=== PATIENT | male | born 2000 | race Caucasian/White ===

== ENCOUNTER 2020-11-26 19:09 | Inpatient (IN) ==
[2020-11-26] MEDS ORDERED: KETOROLAC TROMETHAMINE 15 MG/ML VIAL IV STA (19:36)
[2020-11-26] MEDS ORDERED: SODIUM CHLORIDE 0.9% 1000ML 1,000 ML IV ONE (19:36)
[2020-11-26] MEDS ORDERED: MoRPHine SULFATE 4 MG/ML 1 ML CARP\\VIAL IV STA (19:36)
[2020-11-26] MEDS ORDERED: ONDANSETRON INJ 2 MG/ML 2 ML VIAL IV STA (19:36)
--- NOTE | 2020-11-26 19:40 | Emergency Department Note ---
Impression & Plan Renal colic, Vomiting, Failure of outpatient treatment ED Provider Note NAME: JAHAIRA SALAZAR AGE: 20 SEX: M : 2000 ARRIVES VIA: Walk-In INFORMANT: [Patient] ED PROVIDER(S): [Nikko Catherine MD] CHIEF COMPLAINT: Flank pain HISTORY OF PRESENT ILLNESS: The patient is a 20-year-old male who has a 3 mm right ureteral stone. He was here on the and diagnosed with the stone by CT imaging. He was discharged with pain medication and some nausea medication. The patient returned the following day and a KUB showed the stone had progressed to the distal portion of the ureter. He presents back today with continued pain. He has not passed the stone. He is out of his pain and nausea medication. He also states he has not had a bowel movement in around 2 days. Patient has been vomiting this afternoon. The pain is an 8/10. The pain is right-sided and radiates to the right flank. No testicle pain. No fever, no cough or congestion. No blood in the urine or urinary burning. REVIEW OF SYSTEMS: See HPI for pertinent positives and negatives. A total of ten systems were reviewed and were otherwise negative. PMHx/PSHx: See Below SOCIAL HISTORY: See Below. PHYSICAL EXAM: GENERAL: Patient is in no acute distress. HEENT: No acute trauma, normocephalic atraumatic, mucous membranes moist, no nasal congestion, no scleral icterus. NECK: No stridor, no adenopathy, no meningismus, trachea is midline. LUNGS: Clear to auscultation bilaterally, no wheeze, no rhonchi, breath sounds equal. HEART: Without murmurs gallops or rubs, regular rate and rhythm. ABDOMEN: Soft, moderately tender along the entire right side of the abdomen, bowel sounds positive, no hernias, no peritonitis. EXTREMITIES: No cyanosis or edema, full range of motion of all the joints without pain or difficulty, no signs for acute trauma. NEUROLOGIC: Oriented x 3, no acute motor or sensory deficits, no focal weakness. SKIN: No rash, no jaundice, no diaphoresis. Back: Right flank discomfort to percussion. DIFFERENTIAL DIAGNOSIS: Renal colic, UTI, appendicitis, diverticulitis, mesenteric ischemia, aortic pathology, constipation, infections, inflammatory bowel disease, PUD, biliary pathology, as well as other pathologies. EMERGENCY DEPARTMENT COURSE/PROCEDURES: MEDICAL DECISION MAKING: There is no leukocytosis or concerning anemia. There is a normal platelet count. Potassium slightly low but there is no need for emergent correction. There is no kidney failure. Urinalysis does not show infection. Covid and influenza testing were negative. KUB demonstrates a potential distal right ur eteral stone. On exam, the patient did have right flank discomfort and some right lower abdominal discomfort. The patient received IV saline, 1 L. He was given IV Zofran. He eventually required a dose of IV Phenergan for persistent nausea and vomiting. He was given oral Flomax to help with the stone passage. He received IV morphine and IV Toradol. This is the patient's third visit for this right ureteral stone. I do think a hospital stay is warranted. He has failed outpatient treatment. I spoke to the patient, I talked with the keycase assembler. The on-call hospitalist was consulted. Past Med/Surg History Medical History Kidney stone Surgical History No significant past surgical history Social History Smoking Status: Never smoker Preferred Language: Filipino marital status: Single current occupational status: student Feels Safe at Home: Yes Allergies Allergies Allergy/AdvReac Type Severity Reaction Status Date / Time No Known Allergies Allergy Unverified 11/24/20 09:47 Home Meds Previous Rx's Medication Instructions Recorded naproxen 250 mg PO Q8H #21 tab 11/23/20 ondansetron 4 mg PO Q6H PRN #10 tab 11/23/20 oxycodone 5 mg PO Q6H PRN #12 tab 11/23/20 Results & Data (ED) Vital Signs Vital Signs - 24 hr 11/26/20 19:14 11/26/20 20:56 Temperature 36.7 C Temperature Source Temporal Artery Scan Pulse Rate 73 Pulse Rate [Finger] 87 Pulse Rhythm Regular Pulse Strength Normal Respiratory Rate 16 18 Respiratory Effort / Characteristics Non-Labored Respiratory Depth Normal Respiratory Pattern Regular Blood Pressure 134/81 Blood Pressure [Right Arm] 124/78 Blood Pressure Mean 98 Blood Pressure Mean [Right Arm] 93 Blood Pressure Position Sitting Blood Pressure Position [Right Arm] Lying Pulse Oximetry 94 100 Oxygen Delivery Method Room Air Sepsis Recent Fever Within 48 Hours No Sepsis New/Unexplained Change in Mental Status N/A Sepsis Action Taken by Nursing No Action Required Home Medications Current Medication List: was personally reviewed by me Laboratory Data Attestation: I reviewed the patient's lab results. Result diagrams: 11/26/20 19:55 11/26/20 19:55 Lab Results 11/26/20 11/26/20 11/26/20 Range/Units 19:55 19:55 20:56 WBC 9.84 (4.8-10.8) K/uL RBC 4.62 L (4.7-6.1) M/uL Hgb 13.6 L (14.0-18.0) g/dL Hct 39.1 L (42-52) % MCV 84.6 (80-100) fL MCH 29.4 (25-34) pg MCHC 34.8 (32-36) g/dL RDW Std Deviation 36.2 L (36.4-46.3) fL RDW Coeff of Raul 11.8 (11.5-14.5) % Plt Count 231 (130-400) K/uL MPV 8.6 (7.4-10.4) fL Sodium 139 (136-145) mmol/L Potassium 3.2 L (3.5-5.1) mmol/L Chloride 105 (98-107) mmol/L Carbon Dioxide 30 (21-32) mmol/L Anion Gap 4.0 (3-11) BUN 10 (7-18) mg/dl Creatinine 1.34 (0.6-1.4) mg/dl Est Cr Clr Drug Dosing 85.2 ml/min Est GFR ( Amer) 87.2 Est GFR (Non-Af Amer) 75.2 BUN/Creatinine Ratio 7.2 L (10-20) Glucose 88 (70-99) mg/dl Calcium 8.6 (8.5-10.1) mg/dl Urine Color Yellow Urine Appearance Clear (Clear) Urine pH 7.0 (4.5-7.5) Ur Specific Overton 1.006 (1.000-1.030) Urine Protein Negative (Negative) Urine Glucose (UA) Negative (Negative) Urine Ketones Trace H (Negative) Urine Blood Trace H (Negative) Urine Nitrite Negative (Negative) Urine Bilirubin Negative (Negative) Urine Urobilinogen Negative (Negative) Ur Leukocyte Esterase Negative (Negative) Urine WBC (Auto) 0 (0-5) /hpf Urine RBC (Auto) 0-4 (0-4) /hpf U Hyaline Cast (Auto) 0 (0-5) /lpf U Epithel Cells (Auto) 0-5 (0-5) /lpf Urine Bacteria (Auto) Negative (Negative) COVID-19 Eval Order SARS-CoV-2 (PCR) (Negative) Influenza Type A (PCR) (Neg) Influenza Type B (PCR) (Neg) RSV (RT-PCR) (Neg) 11/26/20 11/26/20 Range/Units 22:05 22:05 WBC (4.8-10.8) K/uL RBC (4.7-6.1) M/uL Hgb (14.0-18.0) g/dL Hct (42-52) % MCV (80-100) fL MCH (25-34) pg MCHC (32-36) g/dL RDW Std Deviation (36.4-46.3) fL RDW Coeff of Raul (11.5-14.5) % Plt Count (130-400) K/uL MPV (7.4-10.4) fL Sodium (136-145) mmol/L Potassium (3.5-5.1) mmol/L Chloride (98-107) mmol/L Carbon Dioxide (21-32) mmol/L Anion Gap (3-11) BUN (7-18) mg/dl Creatinine (0.6-1.4) mg/dl Est Cr Clr Drug Dosing ml/min Est GFR ( Amer) Est GFR (Non-Af Amer) BUN/Creatinine Ratio (10-20) Glucose (70-99) mg/dl Calcium (8.5-10.1) mg/dl Urine Color Urine Appearance (Clear) Urine pH (4.5-7.5) Ur Specific [place] (1.000-1.030) Urine Protein (Negative) Urine Glucose (UA) (Negative) Urine Ketones (Negative) Urine Blood (Negative) Urine Nitrite (Negative) Urine Bilirubin (Negative) Urine Urobilinogen (Negative) Ur Leukocyte Esterase (Negative) Urine WBC (Auto) (0-5) /hpf Urine RBC (Auto) (0-4) /hpf U Hyaline Cast (Auto) (0-5) /lpf U Epithel Cells (Auto) (0-5) /lpf Urine Bacteria (Auto) (Negative) COVID-19 Eval Order [facility]FluRsv at [facility] SARS-CoV-2 (PCR) NEGATIVE (Negative) Influenza Type A (PCR) Negative (Neg) Influenza Type B (PCR) Negative (Neg) RSV (RT-PCR) Negative (Neg) Administered Medications Potassium Chloride (K Lavon / Wtr) 10 meq in 100 mls @ 100 mls/hr IV Q1H STA Stop: 11/26/20 23:44 Last Admin: 11/26/20 23:03 Dose: 100 mls/hr Documented by: [id number] Discontinued Medications Sodium Chloride (Nss 1000ml) 1,000 mls @ 999 mls/hr IV .Q1H1M ONE Stop: 11/26/20 20:36 Last Infusion: 11/26/20 21:11 Dose: 0 mls/hr Documented by: [id number] Admin: 11/26/20 20:10 Dose: 999 mls/hr Documented by: [id number] Promethazine HCl (Phenergan) 12.5 mg in 50.5 mls @ 202 mls/hr IV NOW STA Stop: 11/26/20 21:34 Last Infusion: 11/26/20 21:41 Dose: 0 mls/hr Documented by: [id number] Admin: 11/26/20 21:26 Dose: 202 mls/hr Documented by: [id number] Sodium Chloride (Nss 1000ml) 1,000 mls @ 125 mls/hr IV .Q8H JOIE Stop: 12/26/20 22:31 Last Admin: 11/26/20 22:45 Dose: Not Given Documented by: [id number] Ketorolac Tromethamine (Ketorolac Tromethamine 15 Mg/Ml Vial) 15 mg IV NOW STA Stop: 11/26/20 19:37 Last Admin: 11/26/20 20:10 Dose: 15 mg Documented by: [id number] Morphine Sulfate (Morphine Sulfate 4 Mg/Ml 1 Ml Carp\Vial) 4 mg IV NOW STA Stop: 11/26/20 19:37 Last Admin: 11/26/20 20:10 Dose: 4 mg Documented by: [id number] Ondansetron HCl (Ondansetron Inj 2 Mg/Ml 2 Ml Vial) 4 mg IV NOW STA Stop: 11/26/20 19:37 Last Admin: 11/26/20 20:10 Dose: 4 mg Documented by: [id number] Potassium Chloride (Potassium Chloride Crtab 20 Meq Tabcr) 20 meq PO NOW STA Stop: 11/26/20 22:46 Last Admin: 11/26/20 23:03 Dose: 20 meq Documented by: [id number] Tamsulosin HCl (Tamsulosin Hcl 0.4 Mg Cap) 0.4 mg PO NOW ONE Stop: 11/26/20 19:37 Last Admin: 11/26/20 22:44 Dose: Not Given Documented by: [id number] Imaging Data Radiologist's Impression: KUB X-Ray 11/26/20 19:36 XR KUB/Abdomen 1 view CLINICAL HISTORY: renal colic right COMPARISON STUDY: 11/24/2020 FINDINGS: The renal shadows are partially obscured by bowel gas and fecal material. Tiny bilateral renal calculi are suspected. There is no pathologic bowel dilatation. There is a nonspecific 2 mm right pelvic basin calcification. IMPRESSION: 1. Nonobstructive bowel gas pattern 2. Bilateral nephrolithiasis 3. 2 mm right pelvic basin calcification, possibly representing a distal right ureteral calculus given the clinical history of right renal colic ACT 112: Negative or not required by law. Electronically signed by: Ayo Good M.D. 11/26/2020 7:58 PM Discharge Plan Visit Data Chief Complaint: Kidney Stone Stated Complaint: KIDNEY STONE ED Provider: Nikko Catherine Discharge Problem: Renal colic, Vomiting, Failure of outpatient treatment Forms Stand Alone Forms: [facility] Prescriptions Prescriptions: No Action ondansetron 4 mg tablet,disintegrating 4 mg PO Q6H PRN (Reason: nausea and vomiting) Qty: 10 RF: 0 oxycodone 5 mg tablet 5 mg PO Q6H PRN (Reason: pain) Qty: 12 RF: 0 naproxen 250 mg tablet 250 mg PO Q8H Qty: 21 RF: 0 Referrals Referrals: [facility] [Primary Care Provider] - Discharge Problem: Vomiting Qualifiers: Vomiting type: unspecified Vomiting Intractability: non-intractable Nausea presence: with nausea Qualified Code(s): R11.2 - Nausea with vomiting, unspecified
--- NOTE | 2020-11-26 20:00 | XRay Report ---
XR KUB/Abdomen 1 view CLINICAL HISTORY: renal colic right COMPARISON STUDY: 11/24/2020 FINDINGS: The renal shadows are partially obscured by bowel gas and fecal material. Tiny bilateral re nal calculi are suspected. There is no pathologic bowel dilatation. There is a nonspecific 2 mm right pelvic basin calcification. IMPRESSION: 1. Nonobstructive bowel gas pattern 2. Bilateral nephrolithiasis 3. 2 mm right pelvic basin calcification, possibly representing a distal right ureteral calculus give n the clinical history of right renal colic ACT 112: Negative or not required by law. Electronically signed by: Ayo Good M.D. 11/26/2020 7:58 PM
[2020-11-26] MEDS: TAMSULOSIN HCL 0.4 MG CAP PO ONE ×2 (20:10→22:44)
[2020-11-26 20:22] LABS: Hematocrit (blood only) 39.1 % (42-52); Hemoglobin 13.6 g/dL (14.0-18.0); Mean Corpuscular Hemoglobin 29.4 pg (25-34); Mean Corpuscular Hgb Conc 34.8 g/dL (32-36); Mean Corpuscular Volume 84.6 fL (80-100); Mean Platelet Volume 8.6 fL (7.4-10.4); Platelet Count 231 K/uL (130-400); RDW Coefficient of Variation 11.8 % (11.5-14.5); RDW Standard Deviation 36.2 fL (36.4-46.3); Red Blood Count 4.62 M/uL (4.7-6.1); White Blood Count 9.84 K/uL (4.8-10.8)
[2020-11-26 20:39] LABS: BUN Creatinine Ratio 7.2 (10-20); Calcium 8.6 mg/dl (8.5-10.1); Creatinine Clr Calc Pharmacy 85.2 ml/min; Est GFR (African American) 87.2; Est GFR (Non-African American) 75.2; Potassium 3.2 mmol/L (3.5-5.1)
[2020-11-26 21:08] LABS: Appearance Urine Clear (Clear); Bacteria Urine Automated Negative (Negative); Bilirubin Urine Negative (Negative); Blood Urine Trace (Negative); Cast Urine Automated 0 /lpf (0-5); Color Urine Yellow; Epithelial Cell Urine Auto 0-5 /lpf (0-5); Glucose Urine UA Negative (Negative); Ketones Urine Trace (Negative); Leukocyte Esterase Urine Negative (Negative); Nitrite Urine Negative (Negative); Protein Urine Negative (Negative); RBC Urine Automated 0-4 /hpf (0-4); Specific Gravity Urine 1.006 (1.000-1.030); Urobilinogen Urine Negative (Negative); WBC Urine Automated 0 /hpf (0-5)
[2020-11-26] MEDS ORDERED: PROMETHAZINE 12.5 MG/50.5 ML BAG IV STA (21:20)
--- NOTE | 2020-11-26 22:11 | Urology Consultation ---
Date of Consultation November 26, 2020 Assessment & Plan (1) Kidney stone: As this is now the patient's third visit secondary to his nephrolithiasis and due to his intractable nausea vomiting he is being admitted to the hospital by the hospital service. It is recommended we proceed in the following manner: Provide analgesics Provide antiemetics Provide IV fluids for hydration Provide Flomax for kidney stone expulsive therapy Strain all urine and save any kidney stones that are collected for proper analysis The patient n.p.o. after midnight and he will be assessed in the morning to determine if cystoscopy will be required. Further recommendations were made based on patient's clinical course as it unfolds History of Present Illness Reason for Consultation: Nephrolithiasis History of Present Illness This is a 20-year-old male who is being admitted to the hospital secondary to renal colic secondary to nephrolithiasis. Today is now the patient's third vi sit is 11/23/2020. Patient notes that his pain first began the evening of 11/21/2020. He described the pain as a right flank pain. He felt as though the pain may improve but over the ensuing 24 hours it did not. He therefore presented to [facility] emergency department on 11/23/2020. During that visit patient was noted to have a 3 mm kidney stone at the ureteral pelvic junction causing moderate hydronephrosis. He was able to be discharged home with pain measures in place. Patient's pain did not improve and he returned to the emergency department on 11/24/2020. During this visit the patient had a KUB that showed that the stone had migrated distally to the ureterovesical junction. He was again able to be discharged home with pain control measures in place. Patient returned to the emergency department this evening due to intractable pain as well as nausea vomiting. Today he notes the pain is in his right flank with some radiation to the right anterior abdomen and right groin. He notes intractable nausea vomiting. He denies any fevers but does have occasional shakes and chills. He denies any dysuria. Since his problems began he has noted a small amount of hematuria. He notes that the pain is improved with medicines that are ministered in the emergency department and seems to be worse when he lies down. He notes that this is the first time he has ever had an issue with kidney stones. In the emergency department patient did have labs and imaging independently reviewed. He did have a CT scan on 11/23/2020 as well as KUB on 11/24/2020 which are noted above. At today's visit he did have a KUB that again showed a calcification in the right pelvic region felt to represent the above-noted kidney stone. There is no over the mention the patient did have a CBC today shows white blood cell count platelet count were noted to be normal. His hemoglobin and hematocrit were noted to be 13.6 and 39.1 respectively. A chemistry profile revealed his potassium was 3.2. His sodium, BUN, and creatinine were all noted to be within normal range. Urinalysis today did show trace blood and was not indicative of infection. A Covid test has been ordered and is pending. At the time of my interview with the patient he was in no distress but he was having intermittent bouts of nausea vomiting. Allergies Allergy/AdvReac Type Severity Reaction Status Date / Time No Known Allergies Allergy Unverified 11/24/20 09:47 Home Medications Medication Instructions Recorded Confirmed Type naproxen 250 mg PO Q8H #21 tab 11/23/20 11/26/20 Rx ondansetron 4 mg PO Q6H PRN #10 tab 11/23/20 11/26/20 Rx oxycodone 5 mg PO Q6H PRN #12 tab 11/23/20 11/26/20 Rx Patient History Medical History Kidney stone Surgical History No significant past surgical history Social History Smoking Status: Never smoker Preferred Language: Faroese marital status: Single current occupational status: student Feels Safe at Home: Yes Review of Systems Constitutional: no fever Eyes: no diplopia Ear, Nose, Mouth, Throat: no ear pain Respiratory: no cough and no dyspnea Cardiovascular: no chest pain Gastrointestinal: + nausea and + vomiting; no abdominal pain Genitourinary: + hematuria and + flank pain (Right sided); no dysuria Musculoskeletal: + back pain (Right flank) Integumentary: no rash Neurologic: no generalized weakness Physical Exam Constitutional: well developed and well nourished; no acute distress Eyes: no conjunctival abnormality ENMT: Ears: no hearing impairment Neck: trachea midline Respiratory: normal respiratory effort, lungs clear to auscultation Cardiovascular: Rate/Rhythm: regular rate and regular rhythm Gastrointestinal (Abdomen): Abdomen is soft and nondistended. Bowel sounds are present. There is no rebound tenderness or guarding. There is no pain with palpation. Musculoskeletal: No calf tenderness Skin: no rashes, warm and dry Neurologic: moves all extremities Psychiatric: A+Ox3, euthymic affect Genitourinary: + CVA tenderness (Right sided) Results & Data ([facility]) Vital Signs (Past 12 Hours) Vital Signs Temp Pulse Pulse Resp BP BP Pulse Ox 11/26/20 20:56 87 18 124/78 100 11/26/20 19:14 36.7 C 73 16 134/81 94 PG Care Time/CCT Total # of Minutes Spent Total Time Spent with Patient: Total time spent is greater than 50% in coordination of care (as documented) at patient's floor/unit and/or counseling patient: Coding Level of Care Code 86176 Inpt Consult Level 5 Diagnoses Kidney stone N20.0
[2020-11-26] MEDS ORDERED: SODIUM CHLORIDE 0.9% 1000ML 1,000 ML IV SCH (22:32)
[2020-11-26] MEDS ORDERED: ONDANSETRON HOME PACK 4MG OD TAB PO PRN (22:32)
[2020-11-26] MEDS ORDERED: ACETAMINOPHEN 325 MG TAB PO PRN (22:35)
--- NOTE | 2020-11-26 22:39 | History & Physical Report ---
Date of Service November 26, 2020 Assessment & Plan (1) Right distal ureteral calculus: 20 yo M no significant PMHx admitted for intractable nausea and vomiting with right nephrolithiasis/hydronephrosis. Right nephrolithiasis: Initially presented on 11/23 with complaints of flank pain, nausea, vomiting. Found on CTAP to have 3 mm right ureteropelvic junction calculus with moderate right hydronephrosis. Creatinine this admission 1.34, no pre-illness baseline, however patient's creatinine 1.17 on 11/23. Likely post-obstructive given hydronephrosis. Was tolerating pain and nausea well with prescribed Zofran and oxycodone, however pain and nausea returned today when patient ran out of medication. Urology consulted and appreciate recommendations. No findings on UA suggestive of infected stone. Start Flomax, NPO (except meds) with NSS with KCl 20meq at 125cc/hr. Oxycodone and Tylenol for pain, Zofran for nausea. Strain all urine. Hypokalemia: On admission with potassium 3.2. This is in the setting of frequent nausea and vomiting, poor PO intake for seeral days due to pain. Repleted with KCl 20meq PO, 20meq IV. Repeat BMP in AM. Code Status: FULL CODE FEN: NPO except meds; NSS with KCl 20 meq at 125cc/hr DVT ppx: ad mimi on demand, low risk Dispo: Med/Surg (2) Nausea: (3) Elevated serum creatinine: History of Present Illness Chief Complaint: intractable pain, nausea, vomiting Primary Care Provider: [facility] 20 yo M no PMHx presented to ER for continued back and abdominal pain, nausea, and vomiting, after running out of pain and nausea medication for his right kidney stone. On 11/23 he presented to the ER for the same symptoms and was found on CTAP to have 3mm right nephrolithiasis with moderate hydronephrosis. He was discharged with prn Zofran and oxycodone and advised to come back if no better. He was doing well in outpatient setting with prn medications, however he ran out of them yesterday and since then has had recurrence of his pain, nausea, vomiting. He has been unable to eat today due to nausea and vomiting. In the ER today his UA did not appear infected. No leukocytosis, KUB shows persistent small right stone. Creatinine 1.3, and potassium 3.2. Hospitalist service consulted for admission with Urology consult. Allergies Allergy/AdvReac Type Severity Reaction Status Date / Time No Known Allergies Allergy Unverified 11/24/20 09:47 Home Medications Medication Instructions Recorded Confirmed Type naproxen 250 mg PO Q8H #21 tab 11/23/20 11/26/20 Rx ondansetron 4 mg PO Q6H PRN #10 tab 11/23/20 11/26/20 Rx oxycodone 5 mg PO Q6H PRN #12 tab 11/23/20 11/26/20 Rx Past Med/Surg History Medical History Kidney stone Surgical History No significant past surgical history Social History Smoking Status: Never smoker Hx Alcohol Use: Yes Hx Substance Use: No Preferred Language: Bulgarian Communication Ability: Effective Head Usher Required: No Beliefs That Will Affect Care: None marital status: Single Current Living Situation: Other Current Living Situation Comment: Apartment with roommates current occupational status: student Other Information That Helps Us Care for You: No Feels Safe at Home: Yes Safety Concerns: Feels Safe At This Time Assistive Devices: None Review of Systems Review of Systems: All systems reviewed & are unremarkable except as noted in HPI & below Constitutional: + malaise; no fever and no chills Respiratory: no cough and no dyspnea Cardiovascular: no chest pain, no palpitations and no edema Gastrointestinal: + abdominal pain (RLQ) and + nausea; no constipation and no diarrhea/loose stools Physical Exam Constitutional: WD/WN, vitals as above Eyes: PERRL, conjunctivae normal, anicteric sclerae ENMT: external ear and nose normal, oropharynx normal Neck: normal visual inspection Respiratory: normal respiratory effort, lungs clear to auscultation Cardiovascular: RRR, no murmur, no edema Gastrointestinal (Abdomen): Inspection/Auscultation: normal bowel sounds; abdomen not distended Percussion/Palpation: + abdomen tender (RLQ, mild) and abdomen soft; no guarding Musculoskeletal: no cyanosis or clubbing, extremities motor strength 5/5 Skin: no rashes, warm and dry Neurologic: AAOx3, normal speech. Bilateral UE, LE, and face without sensory or motor deficits. No tremor. Psychiatric: A+Ox3, euthymic affect Results & Data Results & Data ([facility]) Vital Signs (Past 12 Hours) Vital Signs Temp Pulse Pulse Resp BP BP Pulse Ox 11/26/20 20:56 87 18 124/78 100 11/26/20 19:14 36.7 C 73 16 134/81 94 Supervising Physician Co-Signing Physician Notes Attending addendum: I have physically seen this patient, have supervised the medical residents activities, and agree with the H&P unless as otherwise noted. Assessment and Plan: 3 mm right distal ureteral calculus/mod right hydronephrosis- NPO IV fluids, NSS + KCl 20 mEq at 125 mils per hour Tamsulosin 0.4 mg daily Acetaminophen 650 mg p.o. every 6 hours as needed mild pain or fever Oxycodone 5 mg p.o. every 6 hours as needed moderate pain Oxycodone 10 mg p.o. every 6 hours as needed severe pain Zofran 4 mg IV every 6 hours as needed Consult urology Hypokalemia- Potassium 3.2 upon admission Replace both orally and IV Remaining orders and notations as noted Resident Activity Tracking Resident Involvement: Resident Care Provided Care Provided: Adult [facility] Medicine
[2020-11-26] MEDS ORDERED: POTASSIUM CHLORIDE CRTAB 20 MEQ TABCR PO STA (22:45)
[2020-11-26] MEDS ORDERED: POTASSIUM CHLORIDE / WTR 10 MEQ/100 ML PLCT IV STA (22:45)
[2020-11-26 23:26] LABS: Influenza A virus by PCR Negative (Neg); Influenza B virus by PCR Negative (Neg); RSV by PCR Negative (Neg); SARS CoV2 RNA(COVID-19) InHosp NEGATIVE (Negative)
[2020-11-26] MEDS: NSS + 20MEQ KCL 20 MEQ/1,000 ML BAG IV SCH (23:54)
[2020-11-27] MEDS: oxyCODONE HCL IR 5 MG TAB (IMMEDIATE RELEASE) PO PRN ×4 (01:42→20:09)
[2020-11-27] MEDS: ONDANSETRON INJ 2 MG/ML 2 ML VIAL IV PRN ×3 (06:44→20:10)
[2020-11-27 06:47] LABS: Hemoglobin 14.1 g/dL (14.0-18.0); Mean Corpuscular Hemoglobin 29.4 pg (25-34); Mean Corpuscular Hgb Conc 35.3 g/dL (32-36); Mean Corpuscular Volume 83.3 fL (80-100); Mean Platelet Volume 8.5 fL (7.4-10.4); Platelet Count 247 K/uL (130-400); RDW Coefficient of Variation 11.6 % (11.5-14.5); RDW Standard Deviation 35.4 fL (36.4-46.3); White Blood Count 10.45 K/uL (4.8-10.8)
[2020-11-27] MEDS: NSS + 20MEQ KCL 20 MEQ/1,000 ML BAG IV SCH ×3 (07:14→20:10)
[2020-11-27 07:16] LABS: Calcium 9.4 mg/dl (8.5-10.1); Creatinine Clr Calc Pharmacy 79.5 ml/min; Est GFR (African American) 81.3; Est GFR (Non-African American) 70.1; Potassium 3.9 mmol/L (3.5-5.1)
--- NOTE | 2020-11-27 07:23 | Urology Progress Note ---
Date of Service November 27, 2020 Assessment & Plan (1) Right distal ureteral calculus: (2) Nausea: (3) Renal colic: 20 year-old male patient admitted with intractable right flank/groin pain with associated nausea/vomiting secondary to obstructing 3 mm right distal ureteral calculus. -Patient remains afebrile. -Labs reviewed - white count normal, creatinine elevated above baseline at 1.42. -Urinalysis on admission not suspicious for infection. -Nausea has improved however he does continue to have intermittent pain that varies in severity. -Discussed treatment options with patient including inpatient surgical intervention versus ESWL versus trial of passage. -Patient prefers to not undergo surgical intervention at this time. -He elects to continue with trial of passage while inpatient. -Okay to have diet today, recommend NPO after midnight. -Continue to strain urine. -Continue with hydration and pain control. -Will continue to follow while inpatient. Please consult our service urgently if patient develops fever >101F, intractable pain or nausea, as this will necessitate urgent surgical intervention. Admission and Anticipated Discharge Date Admission Date: November 26, 2020 Subjective Patient examined at bedside. He is alert, awake, non-toxic in appearance. Reports the nausea has improved, has not vomited since late last evening. Continues to have right groin/right flank pain, varying in severity. Denies dysuria. Noted small amount of hematuria when symptoms originally started. Denies significant frequency/urgency. Denies fevers or chills. Had difficulty sleeping last evening. No known passage of stone since admission. Has been NPO since midnight. Chart review: Afebrile. Wbc 10.45 Hgb 14.1 Creatinine 1.42 (previously 1.34) Urinalysis on admission not indicative of infection. Denies additional urologic concerns today. Review of Systems Constitutional: as per Subjective / HPI; no fever and no chills Gastrointestinal: as per Subjective / HPI Genitourinary: + as per Subjective / HPI Physical Exam Constitutional: well developed and well nourished; no acute distress and not ill appearing Respiratory: normal respiratory effort and able to speak in complete sentences; no respiratory distress and no audible wheezes Gastrointestinal (Abdomen): Inspection/Auscultation: abdomen normal to inspection; abdomen not distended Percussion/Palpation: + abdomen tender (Right lower quadrant) and abdomen soft; no guarding Psychiatric: Orientation: alert, oriented x 3 and cooperative Affect: euthymic affect Genitourinary: no CVA tenderness Results & Data ([facility]) Vital Signs (Past 12 Hours) Vital Signs Temp Pulse Pulse Resp BP Pulse Ox 11/27/20 01:00 36.5 C 77 14 128/77 97 11/26/20 23:52 79 20 117/57 L 95 11/26/20 20:56 87 18 124/78 100 PG Care Time/CCT Total # of Minutes Spent Total Time Spent with Patient: Total time spent is greater than 50% in coordination of care (as documented) at patient's floor/unit and/or counseling patient: Coding Level of Care Code 43560 Subseq Hosp Care Lvl 2 Diagnoses Right distal ureteral calculus N20.1 Nausea R11.0 Renal colic N23
--- NOTE | 2020-11-27 08:05 | Hospitalist Progress Note ---
Date of Service November 27, 2020 Assessment & Plan (1) Kidney stone on right side: 20 yo M no significant PMHx admitted for intractable nausea and vomiting with right nephrolithiasis/hydronephrosis. Right nephrolithiasis: -Initially presented on 11/23 with complaints of flank pain, nausea, vomiting. -Found on CTAP to have 3 mm right ureteropelvic junction calculus with moderate right hydronephrosis. -Creatinine this admission 1.34, no pre-illness baseline, however patient's creatinine 1.17 on 11/23. Likely post-obstructive given hydronephrosis. -Was tolerating pain and nausea well with prescribed Zofran and oxycodone, however pain and nausea returned when patient ran out of medication. -Urology -Patient prefers to not undergo surgical intervention at this time. -He elects to continue with trial of passage while inpatient. -Okay to have diet today, recommend NPO after midnight. -No findings on UA suggestive of infected stone. -Continue Flomax and NSS with KCl 20meq at 125cc/hr. -Oxycodone and Tylenol for pain, Zofran for nausea. -Strain all urine. Hypokalemia: -On admission with potassium 3.2 in the setting of frequent nausea and vomiting, poor PO intake for several days due to pain. -Repleted with KCl 20meq PO, 20meq IV. -Repeat BMP with normal potassium -Continue to monitor Code Status: FULL CODE FEN: Regular; NSS with KCl 20 meq at 125cc/hr DVT ppx: ad mimi on demand, low risk Dispo: Med/Surg (2) Nausea: (3) Right distal ureteral calculus: (4) Vomiting: (5) Failure of outpatient treatment: (6) Elevated serum creatinine: Admission and Anticipated Discharge Date Admission Date: November 26, 2020 Supervising Physician Co-Signing Physician Notes I personally examined the patient and verified all foster points of history and exam, discussed case, and agree with decision making with Dr Kent. Feeling better whenever I see him, Dr. eKnt revisits later, patient does not feel like he would be able to go home yet. Pain has not really shifted in location, has not clearly passed the stone. Vitals noted, in general awake and alert pleasant no distress. HEENT norm ocephalic atraumatic mucous membranes moist. Breathing unlabored no accessory muscle use good effort. Skin shows no rashes no pallor or icterus. Neuro shows no focal deficits. Ureterolithiasis with pain on managed as an outpatient, as well as dehydration with subsequent acute kidney injurypain control, IV fluids, expectant management. If stone fails to progress, then consider urology intervention. Otherwise as above. Subjective Patient laying in bed comfortably. Mentions that he recently had pain medication as he was having a moderate level of pain. Since then has been well controlled. Denies nausea or vomiting at this point. As discussed with urology, he prefers to attempt to pass the stone without surgical intervention overnight. Willing to discuss undergoing surgical intervention if he does not pass it tonight. Review of Systems Review of Systems: All systems reviewed & are unremarkable except as noted in Subjective Physical Exam Constitutional: WD/WN, vitals as above Eyes: PERRL, conjunctivae normal, anicteric sclerae ENMT: external ear and nose normal, oropharynx normal Neck: normal visual inspection Respiratory: normal respiratory effort, lungs clear to auscultation Cardiovascular: RRR, no murmur, no edema Gastrointestinal (Abdomen): Inspection/Auscultation: normal bowel sounds; abdomen not distended Percussion/Palpation: + abdomen tender (RLQ, mild) and abdomen soft; no guarding Musculoskeletal: no cyanosis or clubbing, extremities motor strength 5/5 Skin: no rashes, warm and dry Neurologic: AAOx3, normal speech. Bilateral UE, LE, and face without sensory or motor deficits. No tremor. Psychiatric: A+Ox3, euthymic affect Results & Data Results & Data ([facility]) Vital Signs (Past 12 Hours) Vital Signs Temp Pulse Pulse Resp BP Pulse Ox 11/27/20 07:36 36.9 C 83 20 127/84 98 11/27/20 01:00 36.5 C 77 14 128/77 97 11/26/20 23:52 79 20 117/57 L 95 11/26/20 20:56 87 18 124/78 100 Resident Activity Tracking Resident Involvement: Resident Care Provided Care Provided: Adult Hospital Medicine (1) Vomiting Nausea presence: with nausea Vomiting Intractability: non-intractable Vomiting type: unspecified Qualified Code(s): R11.2 - Nausea with vomiting, unspecified
[2020-11-27] MEDS: TAMSULOSIN HCL 0.4 MG CAP PO SCH (09:20)
[2020-11-27] MEDS ORDERED: oxyCODONE HCL SOLN 5 MG/5 ML UDC PO STA (16:45)
--- NOTE | 2020-11-27 17:00 | Billing Data ---
Date of Service November 27, 2020 Coding Level of Care Code 69810 Subseq Hosp Care Lvl 2
--- NOTE | 2020-11-27 21:53 | Billing Data ---
Date of Service November 27, 2020 Coding Level of Care Code 20281 Initial Inpt Care Lvl 2
[2020-11-28] MEDS: NSS + 20MEQ KCL 20 MEQ/1,000 ML BAG IV SCH ×2 (04:31→11:38)
[2020-11-28] MEDS: oxyCODONE HCL IR 5 MG TAB (IMMEDIATE RELEASE) PO PRN ×2 (04:33→10:10)
[2020-11-28 07:06] LABS: BUN Creatinine Ratio 9.1 (10-20); Calcium 8.4 mg/dl (8.5-10.1); Creatinine Clr Calc Pharmacy 106.5 ml/min; Est GFR (African American) 115.7; Est GFR (Non-African American) 99.8
[2020-11-28] MEDS: TAMSULOSIN HCL 0.4 MG CAP PO SCH (07:31)
--- NOTE | 2020-11-28 08:42 | XRay Report ---
KUB HISTORY: Follow up study in a patient with distal ureteral calculus right distal ureteral calculus COMPARISON: KUB 11/26/2020, CT abdomen and pelvis 11/23/2020 FINDINGS: Renal shadows are partially obscured by bowel gas. Bilateral nephrolithiasis redemonstrate d with calculi measuring up to approximately 3 mm. Ill-defined 2 mm radio density of the right hemipe lvis redemonstrated. No pneumoperitoneum or pneumatosis. No fracture. IMPRESSION: 1. Limited exam secondary to obscuring bowel gas. 2. 2 mm radiodensity of the right hemipelvis may correlate with the previously noted calculus of the ureterovesicular junction. 3. Nonobstructing bilateral nephrolithiasis. ACT 112: Negative or not required by law. The above report was generated using voice recognition software. It may contain grammatical, syntax o r spelling errors. Electronically signed by: Yonas Domingo M.D. 11/28/2020 8:41 AM
[2020-11-28] MEDS: ONDANSETRON INJ 2 MG/ML 2 ML VIAL IV PRN (11:40)
--- NOTE | 2020-11-28 13:35 | Urology Progress Note ---
Date of Service November 28, 2020 Assessment & Plan (1) Right distal ureteral calculus: Discussed options for conservative measure and maximum expulsion medical therapy and symptom controlled. Discussed ESWL. Discussed Ureteroscopy with extraction and/or laser lithotripsy. Risks and benefits were discussed. Stone free rates were also discussed as well as possibility of multiple procedures. Ureteral stents were discussed as well as post-operative issues and pain management. All questions were answered. Improving. Discussed max expulsion with hydration and symptom control. will likely go home today. Followup in 1-2 weeks to confirm passage. Admission and Anticipated Discharge Date Admission Date: November 26, 2020 Subjective Patient admitted with stone and discomfort. Patient is afebrile. Has been undergoing maximum expulsion therapy with oral medications, IV medications, IV fluids, and oral intake. Is doing better without considerable increase in pain or major issues. Has not developed severe vomiting or other issues. Has not experienced fever or chills. Has been tolerating oral medications. Is tolerating fluids. Has noticed some frequency and urgency. Has not had severe pain in the back and flank. Does have occasional burning and irritation. No severe episodes or major changes. Patient does not believe the passed a stone. Has not passed a large amount of blood or debris that may be the stone. Review of Systems Review of Systems: All systems reviewed & are unremarkable except as noted in HPI & below Physical Exam Physical Exam: General: Alert in no acute distress. HEENT: Normocephalic Atraumatic. Inspection normal. Cranial Nerves 2-12 Grossly intact. Normal inspection of face. Normal inspection of neck. Psychologic: Normal affect. Respiratory: Nonlabored. No use of accessory muscles. No tachypnea or dyspnea. Cardiovascular: No tachycardia Skin: [place] and Dry. No rashes or visible lesions. Extremities/Lymphatics: No edema Abdomen: Soft Non-distended. No rebound or guarding. Results & Data ([facility]) Vital Signs (Past 12 Hours) Vital Signs Temp Pulse Resp BP Pulse Ox 11/28/20 07:11 36.5 C 65 16 104/61 97 PG Care Time/CCT Total # of Minutes Spent Total Time Spent with Patient: Total time spent is greater than 50% in coordination of care (as documented) at patient's floor/unit and/or counseling patient: Coding Level of Care Code 74549 Subseq Hosp Care Lvl 3 Diagnoses Right distal ureteral calculus N20.1
--- NOTE | 2020-11-28 14:32 | Discharge Summary ---
Date of Service November 28, 2020 Admission HPI Per Admitting Provider 20 yo M no PMHx presented to ER for continued back and abdominal pain, nausea, and vomiting, after running out of pain and nausea medication for his right kidney stone. On 11/23 he presented to the ER for the same symptoms and was found on CTAP to have 3mm right nephrolithiasis with moderate hydronephrosis. He was discharged with prn Zofran and oxycodone and advised to come back if no better. He was doing well in outpatient setting with prn medications, however he ran out of them yesterday and since then has had recurrence of his pain, nausea, vomiting. He has been unable to eat today due to nausea and vomiting. In the ER today his UA did not appear infected. No leukocytosis, KUB shows persistent small right stone. Creatinine 1.3, and potassium 3.2. Hospitalist service consulted for admission with Urology consult. Principal Diagnosis Nephrolithiasis Discharge Exam Constitutional WD/WN, vitals as above no acute distress Eyes PERRL, conjunctivae normal, anicteric sclerae ENMT external ear and nose normal, oropharynx normal Neck normal visual inspection Respiratory normal respiratory effort, lungs clear to auscultation Cardiovascular RRR, no murmur, no edema Heart Sounds: normal S1 and normal S2 Gastrointestinal (Abdomen) normal bowel sounds, soft, nontender, no hepatosplenomegaly Musculoskeletal no cyanosis or clubbing, extremities motor strength 5/5 Skin no rashes, warm and dry Neurologic CN's II-XI intact bilaterally; no focal motor deficits Psychiatric A+Ox3, euthymic affect Genitourinary no CVA tenderness Discharge Data Allergies Allergy/AdvReac Type Severity Reaction Status Date / Time No Known Allergies Allergy Unverified 11/24/20 09:47 Consultations 11/26/20 21:27 ED Decision to Admit Stat 11/26/20 22:32 Consult Urology Routine Hospital Course (1) Kidney stone on right side: 20 yo M no significant PMHx admitted for intractable nausea and vomiting with right nephrolithiasis/hydronephrosis. Right nephrolithiasis: -Initially presented on 11/23 with complaints of flank pain, nausea, vomiting. -Found on CTAP to have 3 mm right ureteropelvic junction calculus with moderate right hydronephrosis. -Creatinine this admission 1.34, no pre-illness baseline, however patient's creatinine 1.17 on 11/23. Likely post-obstructive given hydronephrosis. -Was tolerating pain and nausea well with prescribed Zofran and oxycodone, however pain and nausea returned when patient ran out of medication. -Evaluated by urology, no surgical intervention necessary at this point in time -No findings on UA suggestive of infected stone. -Continue Flomax - PRN Oxycodone and Tylenol for pain, Zofran for nausea -We will discharge home on above medications for 1 week, if he runs out of medications and pain returns recommend returning to the hospital for further evaluation and likely surgical intervention Hypokalemia: -On admission with potassium 3.2 in the setting of frequent nausea and vomiting, poor PO intake for several days due to pain. -Repleted with KCl 20meq PO, 20meq IV. -Potassium normalized on recheck FEN: Regular diet Dispo: Home (2) Nausea: (3) Right distal ureteral calculus: (4) Vomiting: (5) Failure of outpatient treatment: (6) Elevated serum creatinine: Total Time Total Time Spent Total Time Spent (In Minutes): <30 Discharge Plan Discharge Items Patient Disposition: Home - Self-Care Reason For Visit: INTRACTABLE NAUSEA, VOMITING, RIGHT NEPHROLITHIASI Discharge Diagnosis: Right nephrolithiasis Condition on Discharge: Fair Activity: Per Instructions section Non-emergency contact: Primary Care Provider Call non-emergency contact if: your symptoms worsen, your pain is not controlled and your pain is worsening Follow-up/Referrals: PT,DECLINED [Primary Care Provider] - Diet: Regular Addtl Attending Provider Instructions: You came to [facility] due to pain and nausea related to your recent diagnosis of right kidney stone. While here you were given oxycodone for your pain and Zofran for nausea. Additionally, you were given Flomax to aid in passing your kidney stone. While you were not able to pass the kidney stone in the hospital, we believe that you are stable enough to continue to attempt passage of the stone at home and will likely not require surgical intervention. We will prescribe oxycodone and ketorolac for pain, Zofran for nausea, and Flomax for you. This has been sent to your pharmacy. Please take these medications as instructed. You should take the Flomax daily until the medication has run out and take the other medications only as needed. Your kidney stone should fully pass on its own. We recommend that you strain your urine to make sure that it has passed. If 1 week has passed and you have not passed the stone we recommend that you contact your healthcare provider for further recommendations. If you develop pain that is not controlled despite medications, nausea/vomiting that does not allow you to keep down food/medications, or develop a fever of 101 F or more please seek emergency medical care. Thank you for allowing us to participate in your care. Pending Studies at Discharge: No Stand-Alone Forms: [facility], Opioid Pain Management, Smoking Cessation Medications and DC Order Prescriptions: New tamsulosin 0.4 mg Capsule 0.4 mg PO QAM 7 Days Qty: 7 RF: 0 ketorolac 10 mg tablet 10 mg PO Q8H PRN (Reason: pain) 7 Days Qty: 21 RF: 0 ondansetron HCl [Zofran] 4 mg tablet 4 mg PO Q6H PRN (Reason: nausea and vomiting) 7 Days Qty: 28 RF: 0 Continued oxycodone 5 mg tablet 5 mg PO Q6H PRN (Reason: pain) Qty: 15 RF: 0 Discontinued ondansetron 4 mg tablet,disintegrating 4 mg PO Q6H PRN (Reason: nausea and vomiting) Qty: 10 RF: 0 naproxen 250 mg tablet 250 mg PO Q8H Qty: 21 RF: 0 Discharge Orders: Discharge Order (Routine); Ordered 11/28/20 Ordered By: Willie Wolfe/Other Patient Handouts: Anatomy of the Male Urinary Tract, Understanding Kidney Stones Admission Data Admit Date/Time: 11/26/20 22:32 Attending Provider: Tino Johnson Admit Provider: Malu Day Primary Care Provider: BRAD,CHIRAA Other Providers: Norberto Taylor ; Jessee Ny Supervising Physician Co-Signing Physician Notes I personally examined the patient and verified all foster points of history and exam, discussed case, and agree with decision making with Dr Kent. Feeling better and notes that oral pain medicine is helping. Feels like he could be okay to do this at home. Neurology sees him later and agrees. Vitals noted, in general awake and alert pleasant no distress. HEENT normocephalic atraumatic mucous membranes moist. Breathing unlabored no accessory muscle use good effort. Skin shows no rashes no pallor or icterus. Neuro shows no focal deficits. Ureterolithiasis with pain on managed as an outpatient, as well as dehydration with subsequent acute kidney injuryhe is now hydrated and his TEJAS has resolved. He is able to eat and drink well enough that he no longer needs IV fluid, pain control is working with p.o. pain medicines. Stable for home and expectant management. Outpatient urology follow-up, or return to hospital if "red flag" symptoms evolve Otherwise as above. Resident Activity Tracking Resident Involvement: Resident Care Provided Care Provided: Adult Hospital Medicine
--- NOTE | 2020-11-28 14:43 | Billing Data ---
Date of Service November 28, 2020 Coding Level of Care Code D/C Day Management <30 mins
== END 2020-11-28 15:27 | disposition home or self-care (01) | DRG 694 ==
LOC: ED 19:09 → 3N 22:32 → SUATTDRO 22:32 → 3N 11-27 00:48